=== PATIENT | male | born 1990 | race African-American/Black ===

== ENCOUNTER 2016-09-10 17:46 | Emergency (ER) | payer OTHER ==
[~2016-09-10] VITALS: Ht 177.8 cm; Wt 89.4 kg
[2016-09-10] MEDS ORDERED: PREDNISONE 20 M20 MG PO (18:07)
[2016-09-10] MEDS ORDERED: ZANTAC 150MG T150 MG PO (18:07)
[2016-09-10] MEDS ORDERED: ZYRTEC10 M2 PO (18:07)
== END 2016-09-10 19:30 | disposition home or self-care (01) ==
LOC: ER 17:46
DX: L29.9 Pruritus, unspecified (principal); J45.990 Exercise induced bronchospasm; F17.210 Nicotine dependence, cigarettes, uncomplicated